=== PATIENT | female | born 2000 | race Caucasian/White ===

== ENCOUNTER 2022-05-02 10:00 | Outpatient (CLI) | payer OTHER ==
[~2022-05-02] VITALS: Ht 152.4 cm; Wt 67.4 kg
[2022-05-02 10:08] VITALS: BP 136/83
[2022-05-02] MEDS ORDERED: PREN1CHW6 PO (10:14)
[2022-05-02] MEDS ORDERED: HOME MED LIST COMPLETE! XX SCH (10:15)
== END 2022-05-02 11:45 | disposition home or self-care (01) ==
LOC: M LDO 10:00 → UNDOADMIN 10:00 → M LDI 10:00 → UNDODISIN 11:45 → M LDO 11:45 → UNDOADMIN 12:23 → M LDI 12:23 → EDSTATUS 12:50
PROVIDERS: ATTEND Obstetrics & Gynecology
DX: O48.0 Post-term pregnancy (principal); Z3A.41 41 weeks gestation of pregnancy
CPT/HCPCS: 59025; G0463

== ENCOUNTER 2022-05-07 18:05 | Inpatient (IN) | payer OTHER ==
[2022-05-07] VITALS (16 sets, daily range): BP systolic 121–156; BP diastolic 73–90
[~2022-05-07] VITALS: Ht 152.4 cm; Wt 65.6 kg
[~2022-05-07 18:05] MED LIST: PREN1CHW6 PO
[2022-05-07] MEDS ORDERED: METHYLERGONOVINE MALEATE 0.2 MG/ML VIAL (J2210) IM PRN (18:15)
[2022-05-07] MEDS ORDERED: TRANEXAMIC ACID INJection 1,000 MG in NS 100 ML IV PRN (18:15)
[2022-05-07] MEDS ORDERED: OXYTOCIN DRIP 30 UNITS in IV 1 EA IV PRN ×4 (18:15)
[2022-05-07] MEDS ORDERED: CARBOPROST TROMETHAMINE 250 MCG/ML AMP IM PRN (18:15)
[2022-05-07] MEDS ORDERED: LIDOCAINE 1% MDV 20ML VIAL INFIL PRN (18:15)
[2022-05-07] MEDS ORDERED: HOME MED LIST COMPLETE! XX SCH (18:25)
[2022-05-07 18:59] LABS: HEMATOCRIT 29.4 % (36.0-47.0); HEMOGLOBIN 9.8 g/dl (12.0-15.5); MEAN CORPUSCULAR HEMOGLOBIN 30.1 pg (27.0-33.0); MEAN CORPUSCULAR HGB CONC 33.3 g/dl (32.0-36.5); MEAN CORPUSCULAR VOLUME 90.2 fl (80.0-96.0); PLATELET COUNT, AUTOMATED 207 10^3/uL (150-450); RED BLOOD COUNT 3.26 10^6/uL (4.00-5.40)
[2022-05-07] MEDS ORDERED: OXYTOCIN DRIP 30 UNITS in IV 1 EA IV SCH (19:00)
[2022-05-07] MEDS: LR 1,000 ML IV SCH ×2 (19:20→23:23)
[2022-05-07] MEDS ORDERED: diphenhydrAMINE 50MG/ML VIAL (J1200) IV PRN (22:45)
[2022-05-07] MEDS ORDERED: NALOXONE INJ 0.4MG/1ML VIAL (J2310 PER 1MG) IV PRN (22:45)
[2022-05-07] MEDS ORDERED: ePHEDrine SULFATE 25 MG/5 ML(5MG/ML) SYRINGE IVP PRN (22:45)
[2022-05-07] MEDS ORDERED: ONDANSETRON 4MG 2ML VIAL IV PRN (22:45)
[2022-05-07] MEDS ORDERED: EPIDURAL/PCA KEYS XX PRN (22:45)
[2022-05-07] MEDS ORDERED: LR 500 ML IV PRN (22:45)
[2022-05-07] MEDS ORDERED: FENTANYL/ROPIVACAINE/NACL BAG 100 ML EPIDURAL SCH (22:45)
[2022-05-08] VITALS (24 sets, daily range): BP systolic 109–161; BP diastolic 58–87
[2022-05-08] MEDS ORDERED: DIBUCAINE 1% OINTMENT 30GM TOP PRN (05:30)
[2022-05-08] MEDS ORDERED: DOCUSATE SODIUM 100MG CAPSULE PO PRN (05:30)
[2022-05-08] MEDS ORDERED: ACETAMINOPHEN 500 MG TAB PO PRN (05:30)
[2022-05-08] MEDS ORDERED: OXYTOCIN DRIP 30 UNITS in IV 1 EA IV SCH (05:30)
[2022-05-08] MEDS ORDERED: IBUPROFEN 600MG TAB PO PRN (05:30)
[2022-05-08] MEDS ORDERED: METHYLERGONOVINE MALEATE 0.2 MG TAB PO PRN (05:30)
[2022-05-08] MEDS ORDERED: ACETAMINOPHEN TAB 650MG DOSE (2X325MG) PO PRN (05:30)
[2022-05-08] MEDS: PRENATAL VITAMINS CHEWABLE TABLET PO SCH (08:11)
[2022-05-08] MEDS: IBUPROFEN 800 MG TAB PO PRN (12:53)
[2022-05-09] MEDS: IBUPROFEN 800 MG TAB PO PRN (05:25)
[2022-05-09 06:00] VITALS: BP 120/76
[2022-05-09] MEDS: PRENATAL VITAMINS CHEWABLE TABLET PO SCH (08:17)
[2022-05-09 18:28] VITALS: BP 117/73
[2022-05-10 06:25] VITALS: BP 116/58
[2022-05-10] MEDS ORDERED: COLA100C5 PO (07:19)
[2022-05-10] MEDS ORDERED: IBUP-1022 PO (07:19)
[2022-05-10] MEDS ORDERED: PRENCHW PO (07:19)
[2022-05-10] MEDS: PRENATAL VITAMINS CHEWABLE TABLET PO SCH (07:48)
== END 2022-05-10 18:45 | disposition home or self-care (01) | DRG 807 ==
LOC: M LDI 18:05 → M OBS 05-08 08:42
PROVIDERS: ADMIT Advanced Practice Midwife; ATTEND Advanced Practice Midwife
PROC: 3E033VJ Introduction of Other Hormone into Peripheral Vein, Percutaneous Approach (ICD-10-PCS; 2022-05-07)
PROC: 10E0XZZ Delivery of Products of Conception, External Approach (ICD-10-PCS; principal; 2022-05-08)
PROC: 0HQ9XZZ Repair Perineum Skin, External Approach (ICD-10-PCS; 2022-05-08)
DX: O48.0 Post-term pregnancy (principal); Z37.0 Single live birth; Z3A.41 41 weeks gestation of pregnancy; O70.0 First degree perineal laceration during delivery

== ENCOUNTER 2022-07-14 19:58 | Emergency (ER) | payer OTHER ==
[~2022-07-14] VITALS: Ht 152.4 cm; Wt 56.5 kg
[2022-07-14 19:58] VITALS: BP 124/74
[~2022-07-14 19:58] MED LIST changes: +COLA100C5 PO; +IBUP-1022 PO; +PRENCHW PO
[2022-07-15] MEDS ORDERED: PROPARACAINE 0.5% OPHTH SOL 15ML OS ONE (00:20)
[2022-07-15] MEDS ORDERED: FLUORESCEIN OPHTH 1 MG STRIP OS ONE (00:20)
[2022-07-15] MEDS ORDERED: ACETAMINOPHEN 325 MG TAB PO ONE (00:40)
[2022-07-15] MEDS ORDERED: POLYSPORIN OPHTH OINT 3.5 GM OS ONE (00:50)
[2022-07-15] MEDS ORDERED: CLINDAMYCIN 150MG CAPSULE PO ONE (00:50)
[2022-07-15] MEDS ORDERED: BACIOIN23 OP (00:51)
[2022-07-15] MEDS ORDERED: CLIN150C17 PO (00:52)
== END 2022-07-15 01:23 | disposition home or self-care (01) ==
LOC: M ED 19:58
DX: L03.213 Periorbital cellulitis (principal); H01.004 Unspecified blepharitis left upper eyelid

== ENCOUNTER → 2023-02-15 | Outpatient (CLI) | payer OTHER ==
[~2023-02-15] MED LIST changes: +BACIOIN23 OP; +CLIN150C17 PO
[2023-02-15 14:26] LABS: BASO % 0.6 % (0.0-1.0); EOS # 0.1 10^3/uL (0.0-0.5); EOS % 4.4 % (0.0-3.0); HEMATOCRIT 35.9 % (36.0-47.0); HEMOGLOBIN 11.8 g/dl (12.0-15.5); LYMPH % 62.2 % (24.0-44.0); MEAN CORPUSCULAR HEMOGLOBIN 29.8 pg (27.0-33.0); MEAN CORPUSCULAR HGB CONC 32.9 g/dl (32.0-36.5); MEAN CORPUSCULAR VOLUME 90.7 fl (80.0-96.0); MONO # 0.4 10^3/uL (0.0-0.8); MONO % 13.8 % (2.0-8.0); PLATELET COUNT, AUTOMATED 231 10^3/uL (150-450); RED BLOOD COUNT 3.96 10^6/uL (4.00-5.40); WHITE BLOOD COUNT 3.2 10^3/uL (4.0-10.0)
[2023-02-15 14:51] LABS: ALKALINE PHOSPHATASE 131 U/L (46-116); ALT/SGPT 14 U/L (7.0-40); AST/SGOT < 8 U/L (<34); BILIRUBIN,TOTAL 0.3 MG/DL (0.3-1.2); BLOOD UREA NITROGEN 12 MG/DL (9-23); CALCIUM LEVEL 9.4 MG/DL (8.5-10.1); CARBON DIOXIDE LEVEL 28 MMOL/L (20-31); CHLORIDE LEVEL 108 MMOL/L (98-107); CREATININE FOR GFR 0.53 MG/DL (0.55-1.30); GLOMERULAR FILTRATION RATE > 60.0 (>60); GLUCOSE, FASTING 94 MG/DL (60-100); POTASSIUM SERUM 4.1 MMOL/L (3.5-5.1); SODIUM LEVEL 140 MMOL/L (136-145); TOTAL PROTEIN 6.7 G/DL (5.7-8.2)
[2023-02-15 14:56] LABS: NEUTROPHILS # 0.6 10^3/uL (1.5-8.5)
== END ==
LOC: M LAB 14:00
PROVIDERS: ATTEND Student in an Organized Health Care Education/Training Program
DX: K59.00 Constipation, unspecified (principal)

== ENCOUNTER → 2023-05-19 | Outpatient (CLI) | payer OTHER ==
[~2023-05-19] MED LIST changes: +AMOX875T2; +NORE0.353
[2023-05-19 13:13] LABS: BASO % 0.3 % (0.0-1.0); EOS # 0.2 10^3/uL (0.0-0.5); EOS % 3.4 % (0.0-3.0); HEMOGLOBIN 12.8 g/dl (12.0-15.5); LYMPH # 2.9 10^3/uL (1.5-5.0); LYMPH % 44.8 % (24.0-44.0); MEAN CORPUSCULAR HEMOGLOBIN 29.7 pg (27.0-33.0); MEAN CORPUSCULAR HGB CONC 32.8 g/dl (32.0-36.5); MEAN CORPUSCULAR VOLUME 90.5 fl (80.0-96.0); MONO # 0.4 10^3/uL (0.0-0.8); MONO % 5.6 % (2.0-8.0); NEUTROPHILS # 2.9 10^3/uL (1.5-8.5); NEUTROPHILS % 45.7 % (36.0-66.0); PLATELET COUNT, AUTOMATED 284 10^3/uL (150-450); RED BLOOD COUNT 4.31 10^6/uL (4.00-5.40); WHITE BLOOD COUNT 6.4 10^3/uL (4.0-10.0)
== END ==
LOC: M LAB 12:32
PROVIDERS: ATTEND Specialist
DX: D70.9 Neutropenia, unspecified (principal)

== ENCOUNTER → 2023-06-01 | Outpatient (REF) | payer OTHER | LOC: M LAB REF 13:24 | PROVIDERS: ATTEND Ophthalmology | DX: H00.11 Chalazion right upper eyelid (principal) ==

== ENCOUNTER → 2023-07-05 | Outpatient (REF) | payer OTHER | LOC: M LAB REF 11:59 | PROVIDERS: ATTEND Ophthalmology | DX: H00.11 Chalazion right upper eyelid (principal) ==

== ENCOUNTER → 2023-11-23 | Outpatient (REF) | payer OTHER | LOC: M SFHCWAGY 10:26 | PROVIDERS: ATTEND Nurse Practitioner Family | DX: Z12.4 Encounter for screening for malignant neoplasm of cervix (principal); Z77.9 Other contact with and (suspected) exposures hazardous to health ==